=== PATIENT | female | born 1935 | race Caucasian/White ===

== ENCOUNTER 2017-09-10 22:09 | Emergency (ER) | payer MEDICARE, BC ==
[~2017-09-10] VITALS: Ht 152.4 cm; Wt 56.7 kg
[~2017-09-10 22:09] MED LIST: ALEVE220 M1 PO; AZITHROMYCIN250 MG PO; CALCIUM 600 +1 EAC1 PO; CALCIUM 600 +1 EAC2 PO; CALCIUM600 MG PO; CENTRUM SILVER1 EAC1 PO; DILAUDID4 MG; ESTRACE42.5 GM VAGINAL; FAMCICLOVIR500 MG PO; IBUPROFEN800 MG PO; KONDREMUL2.5 ML/5 M PO; LATANOPROST2.5 ML OPTH; MOBIC7.5 MG PO; MULTIVITAMINS1 EAC7 PO; NEXIUM40 MG PO; OMEGA 3 1,0001 EACH PO; PRAVASTATIN SOD40 MG PO; PREDNISONE10 MG PO; PROBIOTIC1 EAC1 PO; RANITIDINE HCL150 MG PO; SENNA8.6 MG PO; TAMIFLU75 MG PO; TIMOPTIC5 M1 OP; TIMOPTIC5 M1 OU; TURMERIC500 MG PO; ULTRAM50 MG PO; VIVELLE-DOT1 EAC2 TD; ZETIA10 MG PO; ZOFRAN ODT8 MG PO; ZOFRAN8 MG; ZYRTEC10 MG PO
[2017-09-10] MEDS ORDERED: IBUPROFEN25 GM PO (22:41)
--- NOTE | 2017-09-12 07:15 | EKG ---
[facility] [address] [facility] [place] [address] Signed Sinus bradycardia Low voltage QRS Borderline ECG No previous ECGs available Confirmed by KASHMIR VENTURA MD ([id number]) on 09/12/2017 7:15:36 AM Electronically Signed By: KASHMIR VENTURA MD 09/12/17 0715 PATIENT NAME: SHAHAB CANO Electrocardiogram DATE OF : 39 PHYSICIAN: KASHMIR VENTURA MD REPORT #: [id number] REPORT IS CONFIDENTIAL AND NOT TO BE RELEASED WITHOUT AUTHORIZATION
== END 2017-09-11 00:42 | disposition home or self-care (01) ==
LOC: ED 22:09
DX: R03.0 Elevated blood-pressure reading, without diagnosis of hypertension (principal); M54.2 Cervicalgia; G89.29 Other chronic pain; E78.00 Pure hypercholesterolemia, unspecified; H40.9 Unspecified glaucoma; K21.9 Gastro-esophageal reflux disease without esophagitis; Z90.710 Acquired absence of both cervix and uterus; Z90.10 Acquired absence of unspecified breast and nipple; Z88.8 Allergy status to other drugs, medicaments and biological substances; Z88.5 Allergy status to narcotic agent; Z79.899 Other long term (current) drug therapy
CPT/HCPCS: 80053; 84484; 85025; 93005; 93010; 99284

== ENCOUNTER 2020-05-17 06:30 | Day surgery (SDC) | payer MEDICARE, BC ==
[~2020-05-17] VITALS: Ht 154.9 cm; Wt 56.2 kg
--- NOTE | ~2020-05-17 | OR ---
[facility] [address] [place], [place] [address] Draft DATE OF OPERATION: 05/17/2020 SURGEON: Tayler Valverde MD PREOPERATIVE DIAGNOSIS: Vaginal mesh exposure from prior sling. POSTOPERATIVE DIAGNOSIS: Vaginal mesh exposure from prior sling. PROCEDURE: Excision of exposed mesh and re-closure of vagina. ANESTHESIA: Spinal with IV sedation. ESTIMATED BLOOD LOSS: Minimal. DRAINS: None. INDICATIONS AND FINDINGS: The patient is an 84-year-old female who underwent a sling procedure in approximately 2001. She had done well for many years, but stopped using her vaginal estrogen cream and developed a ridge of mesh exposure at her sling site. This did not heal after restarting her vaginal estrogen, so decision was made to excise this area. At the time of surgery, she had an area approximately 1.5 cm in width at the distal end of the urethra with the exposed mesh. DESCRIPTION OF PROCEDURE: The patient was prepped and draped in the dorsal lithotomy position. A weighted speculum was placed and the exposed mesh was identified. This did require fairly steep Trendelenburg. The area underneath the mesh was injected with sterile saline to aid in delineation of the planes. The vaginal mucosa was undermined at the more cephalad portion of the sling and the vaginal mucosa was then also more caudally from the sling exposure. The exposed mesh was then excised and then, the free edges of the vaginal mucosa were then closed with a running suture of 3-0 Vicryl. There was no evidence of any injury to the urethra. The speculum was then removed and the patient was taken to the recovery room in good condition. PATIENT NAME: SHAHAB CANO OPERATIVE REPORT DATE OF : 39 REPORT #: [id number] PHYSICIAN: TAYLER VALVERDE MD PCP: IRMA ABARCA MD REPORT IS CONFIDENTIAL AND NOT TO BE RELEASED WITHOUT AUTHORIZATION [address] [place] [address] Draft MD DEIDRA Kohler/MODL /[id number] cc: Dr. Abarca Copies: ~ PATIENT NAME: SHAHAB CANO OPERATIVE REPORT DATE OF : 39 REPORT #: [id number] PHYSICIAN: TAYLER VALVERDE MD PCP: IRMA ABARCA MD REPORT IS CONFIDENTIAL AND NOT TO BE RELEASED WITHOUT AUTHORIZATION
[~2020-05-17 06:30] MED LIST changes: +IBUPROFEN25 GM PO
[2020-05-17] MEDS ORDERED: COZAAR100 MG PO (06:45)
[2020-05-17] MEDS ORDERED: CELEBREX100 MG PO (10:27)
[2020-05-17] MEDS ORDERED: CYCLOBENZAPRINE10 MG PO (10:27)
[2020-05-17] MEDS ORDERED: WELLBUTRIN XL150 MG PO (10:27)
[2020-05-17] MEDS ORDERED: NEURONTIN300 MG PO (10:28)
[2020-05-17] MEDS ORDERED: ACID CONTROLLER10 MG PO (10:28)
[2020-05-17] MEDS ORDERED: LIDODERM1 EACH TD (10:28)
[2020-05-17] MEDS ORDERED: OMEPRAZOLE20 MG PO (10:28)
[2020-05-17] MEDS ORDERED: PROMETHAZINE HC25 M1 PO (10:29)
[2020-05-17] MEDS ORDERED: PROAIR HFA8.5 GM INH (10:29)
--- NOTE | 2020-05-17 14:55 | EKG ---
[facility] [address] [facility] [place], [place] [address] Signed Sinus bradycardia Otherwise normal ECG When compared with ECG of 10-SEP-2017 22:56, No significant change was found Confirmed by LASHELL JAVIER MD ([id number]) on 05/17/2020 2:55:11 PM Electronically Signed By: LASHELL JAVIER MD 05/17/20 1455 PATIENT NAME: SHAHAB CANO Electrocardiogram DATE OF : 39 PHYSICIAN: LASHELL JAVIER MD REPORT #: [id number] REPORT IS CONFIDENTIAL AND NOT TO BE RELEASED WITHOUT AUTHORIZATION
== END 2020-05-17 16:45 | disposition home or self-care (01) ==
LOC: DS 06:30
PROVIDERS: ATTEND Obstetrics & Gynecology
PROC: 2Y54X5Z Removal of Female Genital Tract Packing Material (ICD-10-PCS; principal; 2020-05-17 09:00)
DX: T83.721A Exposure of implanted vaginal mesh into vagina, initial encounter (principal); I10 Essential (primary) hypertension; G43.009 Migraine without aura, not intractable, without status migrainosus; Z79.899 Other long term (current) drug therapy; Z88.8 Allergy status to other drugs, medicaments and biological substances; Z88.5 Allergy status to narcotic agent
CPT/HCPCS: 93005; 93010; J0690; J1644; J1885; J2001; J2405; J2704; J7121

== ENCOUNTER 2022-10-16 09:17 | Emergency (ER) | payer MEDICARE, BC ==
[~2022-10-16] VITALS: Ht 154.9 cm; Wt 56.2 kg
[~2022-10-16 09:17] MED LIST changes: +ACID CONTROLLER10 MG PO; +CELEBREX100 MG PO; +COZAAR100 MG PO; +CYCLOBENZAPRINE10 MG PO; +LIDODERM1 EACH TD; +NEURONTIN300 MG PO; +OMEPRAZOLE20 MG PO; +PROAIR HFA8.5 GM INH; +PROMETHAZINE HC25 M1 PO; +WELLBUTRIN XL150 MG PO
[2022-10-16] MEDS ORDERED: METHYLPREDNISOLO4 M1 PO (09:57)
[2022-10-16] MEDS ORDERED: GABAPENTIN300 MG PO (09:57)
== END 2022-10-16 10:36 | disposition home or self-care (01) ==
LOC: ED 09:17
DX: G89.18 Other acute postprocedural pain (principal); M54.16 Radiculopathy, lumbar region; E78.00 Pure hypercholesterolemia, unspecified; K21.9 Gastro-esophageal reflux disease without esophagitis; Z88.8 Allergy status to other drugs, medicaments and biological substances; Z79.899 Other long term (current) drug therapy; Z98.890 Other specified postprocedural states
CPT/HCPCS: 96372; 99283; J1885

== ENCOUNTER 2025-07-17 08:56 | Emergency (ER) | payer MEDICARE, OTHER ==
[~2025-07-17] VITALS: Ht 154.9 cm; Wt 57.5 kg
[~2025-07-17 08:56] MED LIST changes: +GABAPENTIN300 MG PO; +METHYLPREDNISOLO4 M1 PO
[2025-07-17] MEDS ORDERED: DORZOLAMIDE 2%10 ML OP (09:18)
[2025-07-17 10:23] VITALS: BP 148/65
[2025-07-17] MEDS ORDERED: LIDOCAINE HCL 4% 1 EACH PATCH TD ONE (10:30)
[2025-07-17] MEDS ORDERED: LIDOCAINE PATCH REMOVAL 1 EA TD SCH (21:00)
== END 2025-07-17 10:26 | disposition home or self-care (01) ==
LOC: ED 08:56
DX: M54.41 Lumbago with sciatica, right side (principal); I10 Essential (primary) hypertension; K21.9 Gastro-esophageal reflux disease without esophagitis; E78.00 Pure hypercholesterolemia, unspecified; Z79.899 Other long term (current) drug therapy; Z88.8 Allergy status to other drugs, medicaments and biological substances
CPT/HCPCS: 99283-25; A9270